=== PATIENT | male | born 1985 | race Caucasian/White ===

== ENCOUNTER 2019-08-23 09:24 | Inpatient (IN) | payer OTHER ==
[~2019-08-23] VITALS: Ht 182.9 cm; Wt 80.7 kg
--- NOTE | ~2019-08-23 | PROC ---
[address] [address] PROCEDURE REPORT Name: CHRIS BARBOSA Room: [address] IN M.R.#: [id number] Admission: 08/23/19 Attend Phys: Jenny Callejas MD Discharge: 08/26/19 Date of : 81 Report #: [id number] THIS REPORT FOR: //name// cc: Nica Pascal Ghaison F. DO ~ THIS REPORT FOR: //name// For GI report, please see the Provation report in Perceptive 7 content. By: [facility]4Medical Records Staff [facility] /ASTRID
[~2019-08-23 09:24] MED LIST: BLEPH-105 ML OPHTHALMIC; HYDROCODON-ACE1 EAC7 PO; VENTOLIN HFA 1818 GM INH
[2019-08-23 09:34] VITALS: BP 124/77
[2019-08-23] MEDS ORDERED: BLOOD PRESSURE MED (09:37)
[2019-08-23 09:43] LABS: URINE BILIRUBIN NEGATIVE (Negative); URINE BLOOD NEGATIVE (Negative); URINE CLARITY CLEAR; URINE COLOR YELLOW; URINE GLUCOSE-RANDOM NEGATIVE (Negative); URINE KETONES NEGATIVE (Negative); URINE LEUKOCYTES-REFLEX NEGATIVE (Negative); URINE NITRITE-REFLEX NEGATIVE (Negative); URINE PROTEIN NEGATIVE (Negative); URINE SPECIFIC GRAVITY 1.015 (1.005-1.030); URINE UROBILINOGEN 0.2 E.U./dl (0.2-1.0)
[2019-08-23 09:56] LABS: HEMATOCRIT 44.8 % (42.0-52.0); HEMOGLOBIN 15.6 gm/dL (14.0-18.0); MCH 33.1 pg (26.0-34.0); MCHC 34.8 g/dL (28.0-37.0); MPV 8.2 fl. (7.2-11.1); NUCLEATED RBCS 0 /100WBC; PLATELET COUNT* 272 thou/uL (150-400); RBC 4.71 mil/uL (4.50-6.00); RDW-CV 12.8 % (10.5-14.5); WBC 15.8 thou/uL (4.0-11.0)
[2019-08-23 10:18] LABS: ANION GAP 10 mmol/L (7-16); BUN 10 mg/dL (7-18); CHLORIDE 98 mmol/L (98-107); CO2 26 mmol/L (21-32); CREATININE 1.3 mg/dL (0.6-1.3); GLUCOSE 111 mg/dL (70-99); POTASSIUM 3.6 mmol/L (3.5-5.1); SODIUM 134 mmol/L (136-145)
[2019-08-23 10:22] LABS: ALBUMIN 4.3 g/dL (3.4-5.0); ALKALINE PHOSPHATASE 68 U/L (46-116); AMYLASE 89 U/L (25-115); LIPASE 134 U/L (73-393); MAGNESIUM 2.1 mg/dL (1.8-2.4); SGOT 19 U/L (15-37); SGPT 22 U/L (30-65); TOTAL BILIRUBIN 0.5 mg/dL (<0.1-1.0); TOTAL PROTEIN 7.9 g/dL (6.4-8.2)
[2019-08-23 10:29] LABS: ABSOLUTE LYMPHOCYTES 1.4 thou/uL (0.8-5.3); ABSOLUTE MONOCYTES 0.5 thou/uL (0.0-1.2); ABSOLUTE NEUTROPHILS 13.9 thou/uL (1.6-8.1); ANISOCYTOSIS 1+; PLATELET ESTIMATE ADEQUATE; POIKILOCYTOSIS 1+
[2019-08-23 13:24] LABS: BE -2.9 mmol/L (-2 to +3); PO2 90.8 mmHg (75.0-100.0); pH 7.362 (7.340-7.450)
[2019-08-23 15:00] VITALS: BP 139/86
[2019-08-23 15:52] VITALS: BP 136/77
--- NOTE | 2019-08-23 18:14 | NUR ---
PT ADMITTED TO ROOM 219 VIA CART FROM ED AT APPROX 1520, REPORT RECEIVED FROM JOJO PRETTY. PT SEDATED AND HARD TO ROUSE R/T MEDS RECEIVED IN ED. PT STATES HE HAD C/O ABD PAIN BUT NOT CURRENTLY. HX TICK BITE 1 WK AGO, SITE INSPECTED, SLIGHTLY PINK W/ PEA SIZED KNOT UNDER SKIN. NO REDNESS, DRAINAGE OR APPARENT SWELLING. ADMISSION ASSESSMENT AND HX COMPLETED CHARTED. SEPSIS SCREENING COMPLETE, NEGATIVE. HOME MEDS RECONCILED W/ PT'S GIRLFRIEND, NATALY. PT CURRENTLY HAS NS RUNNING AT 100 ML/HR, TRACING SB ON THE PULPER TENDER AND SATTING 98% ON RA. MEDS PER MAY, HOURLY ROUNDING OBSERVED, WILL CONTINUE POC
[2019-08-23] MEDS ORDERED: ROSUVASTATIN CA10 MG PO (18:26)
[2019-08-23] MEDS ORDERED: BUPROPION XL300 MG PO (18:26)
[2019-08-23] MEDS ORDERED: VITAMIN D21250 MC1 PO (18:28)
[2019-08-23] MEDS ORDERED: IRBESARTAN-HCT1 EACH PO (19:02)
[2019-08-23 20:00] VITALS: BP 127/53
[2019-08-24] VITALS: BP 122/55
--- NOTE | 2019-08-24 02:19 | NUR ---
PT ALERT ORIENTED. UP AD JUVENAL IN ROOM. TELEMETRY SHOWS SB/SR, DENIES PAIN. NS AT 125ML/HR
[2019-08-24 04:00] VITALS: BP 135/91
--- NOTE | 2019-08-24 06:07 | NUR ---
NO CHANGES. NPO EXCEPT SIPS AND MEDS. HR OCCASIONALLY DOWN TO 40S.
[2019-08-24 06:13] LABS: HEMATOCRIT 37.7 % (42.0-52.0); MCH 32.7 pg (26.0-34.0); MCHC 34.5 g/dL (28.0-37.0); MCV 94.8 fL (80.0-100.0); RBC 3.98 mil/uL (4.50-6.00); RDW-CV 13.1 % (10.5-14.5); WBC 7.6 thou/uL (4.0-11.0)
[2019-08-24 06:32] LABS: ALBUMIN 2.9 g/dL (3.4-5.0); CREATININE 1.1 mg/dL (0.6-1.3); PHOSPHORUS* 2.6 mg/dL (2.5-4.9); POTASSIUM 3.6 mmol/L (3.5-5.1); TOTAL BILIRUBIN 0.4 mg/dL (<0.1-1.0); TOTAL PROTEIN 5.7 g/dL (6.4-8.2)
[2019-08-24 06:47] LABS: AMP/METHAMP Negative (Negative); BARBITURATES Negative (Negative); BENZODIAZEPINES Negative (Negative); COCAINE Negative (Negative); METHADONE Negative (Negative); OPIATES POSITIVE (Negative); PCP Negative (Negative); THC POSITIVE (Negative)
--- NOTE | 2019-08-24 07:25 | EKG ---
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
--- NOTE | 2019-08-24 07:25 | EKG ---
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 : 1985 Requested By: Danette Low Order Number: [id number] MD: Enrique Spangler Measurements Intervals [place] Rate: 44 P: 71 [place]: 157 QRS: 64 QRSD: 95 T: 71 QT: 457 QTc: 391 Interpretive Statements Sinus bradycardia, short [place] interval ST elev, probable normal early repol pattern No previous ECG available for comparison Electronically Signed On 08-24-2019 7:24:20 CDT by Enrique Spangler [email or web address] <ELECTRONICALLY SIGNED> By: Enrique Spangler MD, FAC 08/24/19 0724 1027 1027 Enrique Spangler MD, [facility] /EPI
[2019-08-24 08:00] VITALS: BP 113/58
--- NOTE | 2019-08-24 09:54 | NUR ---
Pt is A&O. Resides at home with his sig other. Independent. No DME. No hx of HH or SNF. GI work up pending. Goal is home at dc. No needs anticipated. Following.
[2019-08-24 12:00] VITALS: BP 155/72
[2019-08-24] MEDS ORDERED: PROTONIX40 M2 PO (12:01)
[2019-08-24 16:00] VITALS: BP 125/76
--- NOTE | 2019-08-24 19:39 | NUR ---
PT. A0X4, VSS, HR 50S-60S, DENIES PAIN. IVF INFUSING CONTINUOUS WITHOUT COMPLICATIONS. OFFERED TO REQUEST NICOTINE PATCH BUT DECLINED. PT. TOOK SHOWER, AD JUVENAL. NPO AFTER MN FOR EGD TOMORROW. HOURLY ROUNDING PERFORMED. CALL LIGHT AND PERSONAL BELONGINGS PLACED WITHIN REACH. PT. IN BED, WATCHING TV AND IN NO APPARENT DISTRESS AT THE TIME OF SHIFT CHANGE.
[2019-08-24 20:00] VITALS: BP 119/76
--- NOTE | 2019-08-24 23:37 | NUR ---
PT ALERT ORIETNED. UP AD JUVENAL IN ROOM. DENIES PAIN. NO NAUSIA. TELEMETRY SHOWS SB. NPO TO START AT MN. WCTM
[2019-08-25] VITALS: BP 123/78
[2019-08-25 04:00] VITALS: BP 132/87
--- NOTE | 2019-08-25 04:43 | NUR ---
PT WATCHING TV IN ROOM. NPO AFTER MN FOR EGD. TELEMETRY SHOWS SR.
[2019-08-25 08:00] VITALS: BP 121/59
--- NOTE | 2019-08-25 12:10 | NUR ---
Pt medically stable to dc today after EGD. No needs.
[2019-08-25 12:16] VITALS: BP 143/66
[2019-08-25 17:19] VITALS: BP 131/84
--- NOTE | 2019-08-25 18:42 | NUR ---
PT. AOX4, AD JUVENAL TO BATHROOM, DENIES PAIN, SB ON MONITOR BUT STABLE. IVF CONTINUOUS ADMINISTERED. PT. WAS OFF UNIT FOR EGD. TOLERATED PROCEDURE WITHOUT COMPLICATIONS. HOURLY ROUNDING PERFORMED. CALL LIGHT AND PERSONAL BELONGINGS PLACED WITHIN REACH. MESSAGES MEDICAL TECHNOLOGIST BLOOD BANK FOR POSSIBLE D/C
[2019-08-25 20:10] VITALS: BP 132/91
[2019-08-26] VITALS: BP 123/72
--- NOTE | 2019-08-26 03:59 | NUR ---
ASSUMED CARE OF PT AT 1900. PT IS ALERT AND ORIENTED. VSS. PERRLA. NO COMPLAINTS OF PAIN. STEADY GAIT. PT IS IN SINUS RYTHM ON THE TELEMETRY. PT IS RESTING COMFORTABLY IN BED. RESPIRATIONS ARE EVEN AND NONLABORED. WILL CONTINUE TO MONITOR PT.
[2019-08-26 07:54] VITALS: BP 122/78
[2019-08-26 08:52] VITALS: BP 122/78
[2019-08-26] MEDS ORDERED: REGLAN 10 MG TA10 MG PO ×2 (08:52→10:10)
--- NOTE | 2019-08-26 11:49 | NUR ---
PT. AOX4, VSS, SB ON TELE BUT STABLE, DENIES PAIN. HOURLY ROUNDING PERFORMED. CALL LIGHT AND PERSONAL BELONGINGS PLACED WITHIN REACH. DISCHARGE ORDERS RECEIVED. IV DCED WITHOUT COMPLICATIONS. DISCHARGE SUMMARY AND CARENOTES PROVIDED. MEDICATIONS, DIET AND ACTIVITY RESTRICTIONS EXPLAINED AND PT. VERBALIZED UNDERSTANDING. PRESCRIPTIONS SENT. PT. DISCHARGED TO MAIN ENTRANCE AMBULATORY WITH THIS NURSE, WITH PERSONAL BELONGINGS AND PICKED UP BY SIGNIFICANT OTHER BY CAR. PT. LEFT IN STABLE CONDITION, IN NO APPARENT DISTRESS.
--- NOTE | 2019-08-27 14:07 | PATH ---
[address] [address] PATHOLOGY RPT PROCEDURE Name: CHRIS BARBOSA Room: [address] IN M.R.#: [id number] Admission: 08/23/19 Date of : 81 Discharge: 08/26/19 Report #: [id number] Path Case #: [id number] [facility] Accession Number: [id number] . 01 Material submitted: . esophagus - DISTAL ESOPAHGEAL BIOPSY TO R/O DYSPLASIA. Modifiers: distal . 01 Clinical history: . R/o dysplasia . 02 Diagnosis: Distal esophageal biopsy: - Benign esophageal and gastric/columnar types mucosa with mild chronic inflammation typical of reflux, negative for goblet cells/diagnostic Cramer's metaplasia and dysplasia. (POPPY:kalli; 08/27/2019) MBYisel 08/27/2019 1155 Local . 02 Electronically signed: . Jordan Smith MD, Pathologist NPI- [id number] . 01 Gross description: . The specimen is received in formalin, labeled "Acott, Chris, distal esophageal biopsy" and consists of 2 fragments of pink-duque tissue measuring 0.2 x 0.2 cm and 0.5 x 0.2 cm which are entirely submitted in A1. (SDY; 08/26/2019) SYU/SYU 08/27/2019 1154 Local . 02 Pathologist provided ICD-10: K20.9 . 02 CPT . 059042 Specimen Comment: A courtesy copy of this report has been sent to [phone] Specimen Comment: [phone], Specimen Comment: Report sent to ,DR CHATMAN / DR PEREZ Performed at: [address], [place] [id number] MD Jose Velarde MD Phone: [phone] Performed at: 02 [facility] [address], [place], [place] [id number] MD Jordan Smith MD Phone: [phone]
--- NOTE | 2019-09-10 13:50 | CON ---
[address] [address] CONSULTATION Name: FAMILIACHRIS P Room: [address] IN M.R.#: [id number] Admission: 08/23/19 Attend Phys: Jenny Callejas MD Discharge: 08/26/19 Date of : 81 Report #: [id number] THIS REPORT FOR: //name// cc: Nica Pascal Ghaison F. DO THIS REPORT FOR: //name// CC: Nica Jacob MD DATE OF SERVICE: 08/24/2019 REQUESTING PHYSICIAN: Dr. Jenny Callejas. HISTORY OF PRESENT ILLNESS: This is a 33-year-old male who reports that he has had a tick bite couple of weeks ago. He went to a doctor and asked for medication and they put him on doxycycline. He reports that during the same time, he started developing severe abdominal pain, nausea and vomiting. His abdominal pain was limited to his lower abdomen. He reports that he went to the ER and they told to me he was constipated. He reports regular daily bowel movement and denies ever having problems with constipation. He also denies any hematochezia, melena or change in bowel habits. PAST MEDICAL HISTORY: Significant for recent tick bite and cellulitis due to the same. He also has asthma, hyperlipidemia and depression. ALLERGIES AND MEDICATIONS: Please refer to MAR. SOCIAL HISTORY: The patient smokes 1 pack of cigarettes per day. He also occasionally may have marijuana. He denies use of alcohol. FAMILY HISTORY: Negative for GI malignancy. PHYSICAL EXAMINATION: VITAL SIGNS: Reveals blood pressure of 143/66, respirations 16, pulse 49, temperature 97.8. LUNGS: Clear. CARDIOVASCULAR: Regular. ABDOMEN: Soft, nontender, nondistended. Bowel sounds are positive. NEUROLOGIC: The patient is alert and oriented x 3. There is no focal neurologic deficits. LABORATORY DATA: Reveal sodium of 140, potassium 3.6, BUN is 8, creatinine 1.1, AST 14, alk phos 45, ALT 16, total bilirubin 0.4. Urine drug [place] [address] CONSULTATION Name: CHRIS BARBOSA [place] Room: [address]#: [id number] Admission: 08/23/19 Attend Phys: Jenny Callejas MD Discharge: 08/26/19 Date of : 81 Report #: [id number] for opiates and marijuana. WBC is 7.6 with hemoglobin of 13 and platelet of 221. IMAGING: CT of abdomen and pelvis was obtained. This may be significant for pneumonitis. Pancreas, spleen, and kidneys all appear normal. There is moderate to large stool over the descending region of the colon. This may signify constipation. ASSESSMENT AND PLAN: The patient with acute symptoms of nausea, vomiting and abdominal pain. There is no significant finding in the labs and imaging. There is no evidence of biliary source of nausea and vomiting. We will consider upper scope to evaluate his upper gastrointestinal symptoms. I will make further recommendation based on finding. Since he had constipation per imaging, he may benefit from short course of MiraLax daily. <ELECTRONICALLY SIGNED> By: Roland [place] MD 09/10/19 1350 1539 1553Roland [place] MD /nt
== END 2019-08-26 11:08 | disposition home or self-care (01) | DRG 392 ==
LOC: M.ERS 09:24 → M.2W 13:20 → M.TBA-ER 13:20 → M.2W 15:44
PROVIDERS: Personal Emergency Response Attendant; ADMIT Internal Medicine; ATTEND Internal Medicine
PROC: 0DB38ZX Excision of Lower Esophagus, Via Natural or Artificial Opening Endoscopic, Diagnostic (ICD-10-PCS; principal; 2019-08-25)
DX: K21.0 Gastro-esophageal reflux disease with esophagitis (principal); E87.2 Acidosis; K44.9 Diaphragmatic hernia without obstruction or gangrene; F12.988 Cannabis use, unspecified with other cannabis-induced disorder; J45.909 Unspecified asthma, uncomplicated; E83.39 Other disorders of phosphorus metabolism; F17.210 Nicotine dependence, cigarettes, uncomplicated; F32.9 Major depressive disorder, single episode, unspecified; E78.5 Hyperlipidemia, unspecified; Z79.899 Other long term (current) drug therapy; Z88.0 Allergy status to penicillin

== ENCOUNTER 2019-09-14 17:54 | Emergency (ER) | payer OTHER ==
[~2019-09-14] VITALS: Ht 182.9 cm; Wt 81.7 kg
[~2019-09-14 17:54] MED LIST changes: +BLOOD PRESSURE MED; +BUPROPION XL300 MG PO; +IRBESARTAN-HCT1 EACH PO; +PROTONIX40 M2 PO; +REGLAN 10 MG TA10 MG PO; +ROSUVASTATIN CA10 MG PO; +VITAMIN D21250 MC1 PO
[2019-09-14 18:24] LABS: URINE BILIRUBIN NEGATIVE (Negative); URINE BLOOD NEGATIVE (Negative); URINE CLARITY CLEAR; URINE COLOR YELLOW; URINE GLUCOSE-RANDOM NEGATIVE (Negative); URINE KETONES NEGATIVE (Negative); URINE LEUKOCYTES-REFLEX NEGATIVE (Negative); URINE NITRITE-REFLEX NEGATIVE (Negative); URINE PROTEIN NEGATIVE (Negative)
[2019-09-14 18:24] LABS: ABSOLUTE BASOPHILS 0.1 thou/uL (0.0-0.2); ABSOLUTE EOSINOPHILS 0.2 thou/uL (0.0-0.7); ABSOLUTE LYMPHOCYTES 1.7 thou/uL (0.8-5.3); ABSOLUTE NEUTROPHILS 6.1 thou/uL (1.6-8.1); BASOPHILS 0.7 %; EOSINOPHILS 2.6 %; HEMATOCRIT 44.5 % (42.0-52.0); HEMOGLOBIN 15.6 gm/dL (14.0-18.0); LYMPHOCYTES 18.4 %; MCH 32.8 pg (26.0-34.0); MCHC 35.2 g/dL (28.0-37.0); MCV 93.3 fL (80.0-100.0); MPV 7.5 fl. (7.2-11.1); NUCLEATED RBCS 0 /100WBC; PLATELET COUNT* 317 thou/uL (150-400); POLYS 67.3 %; RBC 4.77 mil/uL (4.50-6.00); RDW-CV 12.9 % (10.5-14.5); WBC 9.1 thou/uL (4.0-11.0)
[2019-09-14 18:33] LABS: CALCIUM 9.3 mg/dL (8.5-10.1); CREATININE 1.3 mg/dL (0.6-1.3); POTASSIUM 3.4 mmol/L (3.5-5.1)
[2019-09-14 18:34] LABS: AMP/METHAMP Negative (Negative); BARBITURATES Negative (Negative); BENZODIAZEPINES Negative (Negative); COCAINE Negative (Negative); METHADONE Negative (Negative); OPIATES Negative (Negative); PCP Negative (Negative); THC POSITIVE (Negative)
[2019-09-14 18:37] LABS: ALBUMIN 4.5 g/dL (3.4-5.0); TOTAL BILIRUBIN 0.5 mg/dL (<0.1-1.0); TOTAL PROTEIN 8.1 g/dL (6.4-8.2)
[2019-09-14] MEDS ORDERED: BENTYL 20 MG TA20 M1 PO (21:21)
[2019-09-14] MEDS ORDERED: HIGH POTENCY42.5 GM TOP (21:21)
[2019-09-14] MEDS ORDERED: PROMS25 WY RECTAL (21:21)
[2019-09-14] MEDS ORDERED: PHENERGAN 25 MG25 M1 PO (21:21)
[2019-09-14 21:30] VITALS: BP 139/59
--- NOTE | 2019-09-15 11:37 | EKG ---
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 Operator: KRISTY : 1985 Requested By: Aretha Frias Order Number: [id number] MD: Arnol Solis Measurements Intervals [place] Rate: 63 P: 56 [place]: 157 QRS: 53 QRSD: 96 T: 60 QT: 397 QTc: 407 Interpretive Statements Sinus rhythm ST elev, probable normal early repol pattern Compared to ECG 08/23/2019 10:27:38 Sinus bradycardia no longer present ST (T wave) deviation still present Electronically Signed On 09-15-2019 11:36:50 CDT by Arnol Solis [email or web address] <ELECTRONICALLY SIGNED> By: Arnol Solis MD, [facility] 09/15/19 1136 1849 1849 Arnol Solis MD, [facility] /EPI
== END 2019-09-14 21:30 | disposition home or self-care (01) ==
LOC: M.ERS 17:54
PROVIDERS: Nurse Practitioner Family
DX: R10.84 Generalized abdominal pain (principal); R11.15 Cyclical vomiting syndrome unrelated to migraine; R11.2 Nausea with vomiting, unspecified; J45.909 Unspecified asthma, uncomplicated; Z88.0 Allergy status to penicillin; Z87.891 Personal history of nicotine dependence; Z79.899 Other long term (current) drug therapy

== ENCOUNTER → 2019-09-23 | Outpatient (CLI) | payer OTHER ==
[~2019-09-23] MED LIST changes: +BENTYL 20 MG TA20 M1 PO; +HIGH POTENCY42.5 GM TOP; +PHENERGAN 25 MG25 M1 PO; +PROMS25 WY RECTAL
== END ==
LOC: M.NUC 09-16 13:32
PROVIDERS: ATTEND Internal Medicine Gastroenterology
DX: K30 Functional dyspepsia (principal); K59.00 Constipation, unspecified; R11.2 Nausea with vomiting, unspecified

== ENCOUNTER 2020-07-19 18:52 | Emergency (ER) | payer OTHER ==
[~2020-07-19] VITALS: Ht 182.9 cm; Wt 72.6 kg
[2020-07-19 20:40] VITALS: BP 117/69
--- NOTE | 2020-07-20 12:47 | EKG ---
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
== END 2020-07-19 20:40 | disposition home or self-care (01) ==
LOC: M.ERS 18:52
DX: S01.112A Laceration without foreign body of left eyelid and periocular area, initial encounter (principal); R55 Syncope and collapse; R11.2 Nausea with vomiting, unspecified; J45.909 Unspecified asthma, uncomplicated; Z79.899 Other long term (current) drug therapy; Z88.8 Allergy status to other drugs, medicaments and biological substances; Z88.0 Allergy status to penicillin; Z87.891 Personal history of nicotine dependence; W22.8XXA Striking against or struck by other objects, initial encounter; Y93.89 Activity, other specified; Y92.89 Other specified places as the place of occurrence of the external cause; Y99.8 Other external cause status